=== PATIENT | female | born 1940 | race Caucasian/White ===

== ENCOUNTER 2018-02-13 12:33 | Inpatient (IN) | payer MEDICARE, SELFPAY ==
[~2018-02-13] VITALS: Ht 165.1 cm; Wt 42.5 kg
[~2018-02-13 12:33] MED LIST: ARIPIPRAZOLE2 MG PO; ASPI81CH PO; ASPI81EC; ATOR40TA PO; BUPR100ER; BUPR150ER; CLON.5; CLON.5 PO; CLOP75; CONEST.625; ESTMET; HYDPAM25; LUTEIN; LUTEIN 20 MG; MULTIVIT; MULVITA; NITR.4SL; NITR.4SL SL; PARO20 PO; PROM25 PO; RAMI5; ROSU10TA; TEMA30; TEMA30 PO; TRAM50; TRAM50 PO; Ultram50 MG PO; VENL150ER; VENL75ER; WELLBUTRIN; Xalatan2.5 ML BOTHEYES; [UNRECOGNIZED DRUG - CODE]
[2018-02-13 13:41] LABS: BASOPHILS ABSOLUTE AUTO 0.11 K/mm3 (0.00-0.23); BASOPHILS PERCENT AUTO 1 % (0-2); EOSINOPHILS ABSOLUTE AUTO 0.01 K/mm3 (0.00-0.68); EOSINOPHILS PERCENT AUTO 0 % (0-6); Hematocrit 33.6 % (33.0-51.0); Hemoglobin 10.7 g/dL (11.5-16.0); IMMATURE GRAN ABSOLUTE AUTO 0.07 K/mm3 (0.00-0.10); IMMATURE GRAN PERCENT AUTO 0 % (0-1); LYMPHOCYTES ABSOLUTE AUTO 1.46 K/mm3 (0.84-5.20); LYMPHOCYTES PERCENT AUTO 7 % (21-46); MONOCYTES ABSOLUTE AUTO 1.78 K/mm3 (0.16-1.47); MONOCYTES PERCENT AUTO 9 % (4-13); Mean Corpuscular HGB 29.3 pg (26.0-34.0); Mean Corpuscular HGB Conc 31.8 g/dL (31.5-36.5); Mean Corpuscular Volume 92 fL (80-100); Mean Platelet Volume 11.7 fL (9.1-12.4); NEUTROPHILS ABSOLUTE AUTO 16.75 K/mm3 (1.96-9.15); NEUTROPHILS PERCENT AUTO 83 % (41-73); Platelet Count 335 K/mm3 (150-400); RDW Coefficient Variation 14.5 % (11.7-14.2); RDW Standard Deviation 48.8 fL (35.1-46.3); Red Blood Cell Count 3.65 M/mm3 (3.80-5.20); White Blood Cell Count 20.18 K/mm3 (4.00-11.30)
[2018-02-13 13:44] LABS: Albumin, Blood 2.9 g/dL (3.4-5.0); Albumin/Globulin Ratio 0.7 (0.8-1.8); Bilirubin, Total 0.5 mg/dL (0.1-1.0); Bun/Creatinine Ratio 15.9 (12.0-20.0); Creatinine, Blood 1.38 mg/dL (0.40-1.00); Globulin, Blood 4.2 g/dL (2.2-4.0); Potassium, Blood 3.8 mmol/L (3.5-5.5); Total Protein, Blood 7.1 g/dL (6.4-8.2)
[2018-02-13] MEDS ORDERED: PARO20 PO (13:49)
[2018-02-13] MEDS ORDERED: ASPI81CH PO (13:49)
[2018-02-13] MEDS ORDERED: ATOR40TA PO (13:49)
[2018-02-13] MEDS ORDERED: CLON.5 PO (13:50)
[2018-02-13] MEDS ORDERED: OLAN5 PO (13:50)
[2018-02-13] MEDS ORDERED: LATANOPROST 0.7.5 ML BOTHEYES (13:50)
[2018-02-13] MEDS ORDERED: TEMA30 PO (13:50)
[2018-02-13] MEDS ORDERED: TRAM50 PO (13:51)
[2018-02-13] MEDS ORDERED: NITR.4SL SL (13:51)
[2018-02-13] MEDS ORDERED: Hair, Skin & N1 EACH PO (13:51)
[2018-02-13] MEDS ORDERED: PROM25 PO (13:52)
[2018-02-13 14:39] LABS: Influenza A Negative (NEGATIVE); Influenza B Negative (NEGATIVE)
[2018-02-13 15:02] LABS: Source, Urine Clean Catch
[2018-02-13 15:09] LABS: Bilirubin, Urine Neg (Neg); Blood, Urine 4+ (Neg); Glucose Qualitative, Urine Neg (Neg); Ketones, Urine 1+ (Neg); Leukocyte Esterase, Urine 1+ (Neg); Nitrite, Urine Pos (Neg); Protein, Urine 2+ (Neg); Urobilinogen, Urine NORM (Normal)
[2018-02-13 15:21] LABS: Appearance, Urine Clear (Clear); Color, Urine Yellow (P-Yellow)
[2018-02-13 15:23] LABS: White Blood Cells, Urine 25-50 /hpf (0-5)
[2018-02-13 15:27] LABS: Bacteria Many /hpf; Squamous Epithelial Cells Rare /hpf (Few)
--- NOTE | 2018-02-13 18:28 | NUR ---
NEW ER ADMIT PT IS A/O X4, STATE INCREASED WEAKNESS/FATIGUE, PROD COUGH REASON FOR HOSP. WBC 20.18, LACTIC ACID 2.1, SHE GOT 1L NS & IV LEVAQUIN IN ER. U/A SENT. LAB TECHS HAVE BEEN UNABLE TO DRAW BLOOD CX'S, DR WELCH NOTIFIED STATE WAIT UNTIL HYDRATED, NS @ 75 ML/HR & ATTEMPT WITH AM LABS, LAB NOTIFIED. PT IS SBA WITH CANE TO BR, STATE OLD CVA CAUSES SOME BALANCE PROBLEMS @ X'S. BIOX >90% ON RA. PLEASANT AFFECT. VSS.
--- NOTE | 2018-02-14 00:31 | NUR ---
PER RESPIRATORY THERAPIST YARY, PT HAD AN EPISODE OF CHOKING AND ASPIRATION WHEN DRINKING WATER. THE PT TOLD RT THAT SHE HAS BEEN HAVING TROUBLE SWALLOWING RECENTLY. WILL HOLD PT'S MEDS AND MAKE NPO UNTIL SHE CAN BE EVALUATED BY SPEECH THERAPY FOR A SWALLOW EVAL.
[2018-02-14 05:23] LABS: BASOPHILS ABSOLUTE AUTO 0.06 K/mm3 (0.00-0.23); BASOPHILS PERCENT AUTO 1 % (0-2); EOSINOPHILS ABSOLUTE AUTO 0.01 K/mm3 (0.00-0.68); EOSINOPHILS PERCENT AUTO 0 % (0-6); Hematocrit 31.2 % (33.0-51.0); Hemoglobin 9.9 g/dL (11.5-16.0); IMMATURE GRAN ABSOLUTE AUTO 0.06 K/mm3 (0.00-0.10); IMMATURE GRAN PERCENT AUTO 1 % (0-1); LYMPHOCYTES ABSOLUTE AUTO 0.72 K/mm3 (0.84-5.20); LYMPHOCYTES PERCENT AUTO 6 % (21-46); MONOCYTES ABSOLUTE AUTO 0.84 K/mm3 (0.16-1.47); MONOCYTES PERCENT AUTO 6 % (4-13); Mean Corpuscular HGB 29.1 pg (26.0-34.0); Mean Corpuscular HGB Conc 31.7 g/dL (31.5-36.5); Mean Corpuscular Volume 92 fL (80-100); NEUTROPHILS PERCENT AUTO 87 % (41-73); Platelet Count 310 K/mm3 (150-400); RDW Coefficient Variation 14.4 % (11.7-14.2); White Blood Cell Count 13.19 K/mm3 (4.00-11.30)
--- NOTE | 2018-02-14 05:46 | NUR ---
SHIFT SUMMARY PT IS 77-YEAR-OLD FEMALE, A&O X 3. SHE WAS ADMITTED FOR PNA. PT HAD A CONGESTED SOUNDING COUGH, BUT DID NOT COUGH UP ANY SPUTUM FOR A SAMPLE. PER RESPIRATORY THERAPY, PT ALSO HAD AN EPISODE OF COUGHING AND IS NPO PER A SWALLOW EVAL (SEE PREVIOUS NOTE). SHE DENIED ANY COMPLAINTS OF PAIN OR NAUSEA. SHE WAS ABLE TO GET UP WITH 1PA TO THE BATHROOM. NS CONTINUED AT 75 ML/HOUR THROUGH THE NIGHT. PT'S HEART RATE WAS ELEVATED DURING THE BEGINNING OF THE NIGHT IN THE 110S, BUT CAME DOWN TO THE 80S IN THE AM. ALL OTHER VITALS STABLE. NO OTHER ACUTE CHANGES IN PT CONDITION NOTED. WILL CONTINUE TO MONITOR AND TREAT PER EMAR UNTIL HAND OFF TO DAY SHIFT.
[2018-02-14 06:03] LABS: Albumin, Blood 2.4 g/dL (3.4-5.0); Albumin/Globulin Ratio 0.6 (0.8-1.8); Bilirubin, Total 0.5 mg/dL (0.1-1.0); Bun/Creatinine Ratio 14.7 (12.0-20.0); Calcium, Blood 8.4 mg/dL (8.5-10.1); Creatinine, Blood 1.16 mg/dL (0.40-1.00); Globulin, Blood 3.7 g/dL (2.2-4.0); Magnesium, Blood 1.8 mg/dL (1.6-2.4); Total Protein, Blood 6.1 g/dL (6.4-8.2)
--- NOTE | 2018-02-14 18:48 | NUR ---
SHIFT SUMMARY PT ADMITTED FOR PNEUMONIA. SPEECH THERAPY DID A SWALLOW EVAL TODAY AND PLACED HER ON DYSPHAGIA PRECAUTIONS. PT HAS A HISTORY OF CVA. A SPUTUM SAMPLE IS STILL NEEDED. PT IS GENERALLY WEAK BUT CAN AMBULATE WITH ONE ASSIST TO BATHROOM. PT HAS LITTLE APPETITE OR THIRST. IV FLUIDS ARE INFUSING. DIETARY CAME TO HELP THE PT ATTEMPT TO CHOOSE MORE APPEALING CHOICES. PT HAS A WET COUGH BUT STATES SHE CANNOT PRODUCE SPUTUM. PT DID VOMIT TODAY FOLLOWING A COUGHING SPELL, BUT THE NAUSEA ABATED FOLLOWING ZOFRAN ADMINISTRATION.
--- NOTE | 2018-02-15 04:32 | NUR ---
SHIFT SUMMARY PT ADMITTED FOR PNM; REPORTED HAVING FEVER, COUGH, AND CONGESTION. PT VERY WEAK AND MOVES SLOWLY. 1P ASSIST TO BTHRM. HAD BEEN UP FREQUENTLY WITH URGENCY AND SOME INCONTINENCE R/T UTI. PT NOT VOIDING AT ALL SOMETIMES, THOUGH THINKING SHE HAD. CALL LT IN REACH, BUT NOT WAITING FOR ASSIST AND NOT WANTING TO USE FWW. LUNGS T/O COARSE WITH COARSE PC. MED TAKEN WHOLE IN APPLESAUCE PER SPEECH THERAPY; PT NOT HAPPY AT FIRST AND WANTED THIN LIQUIDS "LIKE WATER". PT DID AGREE TO USE APPLESAUCE; DOING SO W/O DIFFICULTY. NO C/O PAIN. IVF'S INFUSING PER EMAR. BED ALARM PLACED FOR SAFETY.
[2018-02-15 05:04] LABS: BASOPHILS ABSOLUTE AUTO 0.06 K/mm3 (0.00-0.23); BASOPHILS PERCENT AUTO 0 % (0-2); EOSINOPHILS ABSOLUTE AUTO 0.06 K/mm3 (0.00-0.68); EOSINOPHILS PERCENT AUTO 0 % (0-6); Hematocrit 31.6 % (33.0-51.0); Hemoglobin 10.1 g/dL (11.5-16.0); IMMATURE GRAN ABSOLUTE AUTO 0.12 K/mm3 (0.00-0.10); IMMATURE GRAN PERCENT AUTO 1 % (0-1); LYMPHOCYTES ABSOLUTE AUTO 1.34 K/mm3 (0.84-5.20); LYMPHOCYTES PERCENT AUTO 8 % (21-46); MONOCYTES ABSOLUTE AUTO 1.59 K/mm3 (0.16-1.47); MONOCYTES PERCENT AUTO 9 % (4-13); Mean Corpuscular HGB 29.6 pg (26.0-34.0); Mean Corpuscular Volume 93 fL (80-100); Mean Platelet Volume 11.7 fL (9.1-12.4); NEUTROPHILS PERCENT AUTO 82 % (41-73); Platelet Count 295 K/mm3 (150-400); RDW Coefficient Variation 14.4 % (11.7-14.2); RDW Standard Deviation 48.9 fL (35.1-46.3); Red Blood Cell Count 3.41 M/mm3 (3.80-5.20); White Blood Cell Count 17.37 K/mm3 (4.00-11.30)
[2018-02-15 05:33] LABS: Bun/Creatinine Ratio 15.2 (12.0-20.0); Calcium, Blood 8.4 mg/dL (8.5-10.1); Creatinine, Blood 1.05 mg/dL (0.40-1.00); Potassium, Blood 4.4 mmol/L (3.5-5.5)
--- NOTE | 2018-02-15 19:07 | NUR ---
SHIFT SUMMARY- PT DENIES PAIN. PT DENIES SOB. DYSPNEA UPON EXERTION. LUNGS COARSE T/O. DENIES N/V. SPEECH ORDERED PT TO BE NPO. SEE ST NOTE. RT PLACED PT ON 2L O2 NC. RESP SHALLOW AND EVEN. BED ALARM ON. PT HAS ATTEMPTED TO GET OUT OF BED WITHOUT CALLING FOR ASSISTANCE A FEW TIMES THIS SHIFT. NO OTHER SIGNIFICANT CHANGES THIS SHIFT.
--- NOTE | 2018-02-16 04:30 | NUR ---
SHIFT SUMMARY PT HAS SLEPT FAIR, PT DOESN'T UNDERSTAND WHY SHE CAN'T HAVE ANYTHING TO EAT OR DRINK. PT GIVEN EXPLANATION TO WHY, BUT FORGETS AND ASKS AGAIN. ORAL SWABS GIVEN TO PT TO SWAB OUT MOUTH AND GIVE SOME MOISTURE. NO ACUTE CHANGES NOTED WITH PT, WILL CONTINUE TO MONITOR.
[2018-02-16 04:53] LABS: BASOPHILS ABSOLUTE AUTO 0.08 K/mm3 (0.00-0.23); BASOPHILS PERCENT AUTO 0 % (0-2); EOSINOPHILS ABSOLUTE AUTO 0.03 K/mm3 (0.00-0.68); EOSINOPHILS PERCENT AUTO 0 % (0-6); Hematocrit 34.7 % (33.0-51.0); IMMATURE GRAN ABSOLUTE AUTO 0.36 K/mm3 (0.00-0.10); IMMATURE GRAN PERCENT AUTO 2 % (0-1); LYMPHOCYTES ABSOLUTE AUTO 1.18 K/mm3 (0.84-5.20); LYMPHOCYTES PERCENT AUTO 5 % (21-46); MONOCYTES ABSOLUTE AUTO 1.92 K/mm3 (0.16-1.47); MONOCYTES PERCENT AUTO 9 % (4-13); Mean Corpuscular HGB 29.5 pg (26.0-34.0); Mean Corpuscular HGB Conc 31.7 g/dL (31.5-36.5); Mean Corpuscular Volume 93 fL (80-100); Mean Platelet Volume 11.7 fL (9.1-12.4); NEUTROPHILS ABSOLUTE AUTO 18.94 K/mm3 (1.96-9.15); NEUTROPHILS PERCENT AUTO 84 % (41-73); Platelet Count 350 K/mm3 (150-400); RDW Coefficient Variation 14.5 % (11.7-14.2); Red Blood Cell Count 3.73 M/mm3 (3.80-5.20); White Blood Cell Count 22.51 K/mm3 (4.00-11.30)
[2018-02-16 05:09] LABS: Bun/Creatinine Ratio 11.9 (12.0-20.0); Calcium, Blood 9.1 mg/dL (8.5-10.1); Creatinine, Blood 1.01 mg/dL (0.40-1.00); Potassium, Blood 4.1 mmol/L (3.5-5.5)
--- NOTE | 2018-02-16 19:08 | NUR ---
SHIFT SUMMARY- PT DENIES PAIN. DENIES SOB AT REST. DYSPNEA UPON EXERTION. RESP SHALLOW AND EVEN ON 2L O2 NC. DENIES N/V. 1 ASSIST FWW TO THE BATHROOM. SPEECH REEVALUATED PT AND REPORTS PT IS IMPROVING. SPEECH ORDERED PUREE DIET WITH 100% SUPERVISION, NECTAR THICK LIQUID BY SPOON, NO STRAWS AND MEDS CRUSHED IN APPLESAUCE. WBC IS HIGHER TODAY AT 22.51. DR. JULES AWARE. NO OTHER SIGNIFICANT CHANGES THIS SHIFT.
--- NOTE | 2018-02-17 04:53 | NUR ---
SHIFT SUMMARY PT SLEPT FAIR, UP TO BATHROOM FREQUENTLY. IVF'S INFUSING PER PUMP WITHOUT DIFFICULTY. PT OFFERS NO C/O'S. NO ACUTE CHANGES NOTED. WILL CONTINUE TO MONITOR.
[2018-02-17 05:15] LABS: BASOPHILS ABSOLUTE AUTO 0.07 K/mm3 (0.00-0.23); BASOPHILS PERCENT AUTO 0 % (0-2); EOSINOPHILS ABSOLUTE AUTO 0.12 K/mm3 (0.00-0.68); EOSINOPHILS PERCENT AUTO 1 % (0-6); Hematocrit 32.6 % (33.0-51.0); Hemoglobin 10.5 g/dL (11.5-16.0); IMMATURE GRAN ABSOLUTE AUTO 0.38 K/mm3 (0.00-0.10); IMMATURE GRAN PERCENT AUTO 1 % (0-1); LYMPHOCYTES PERCENT AUTO 7 % (21-46); MONOCYTES PERCENT AUTO 10 % (4-13); Mean Corpuscular HGB 29.1 pg (26.0-34.0); Mean Corpuscular HGB Conc 32.2 g/dL (31.5-36.5); Mean Platelet Volume 11.9 fL (9.1-12.4); NEUTROPHILS ABSOLUTE AUTO 21.29 K/mm3 (1.96-9.15); NEUTROPHILS PERCENT AUTO 81 % (41-73); Platelet Count 369 K/mm3 (150-400); RDW Coefficient Variation 14.4 % (11.7-14.2); RDW Standard Deviation 48.3 fL (35.1-46.3); Red Blood Cell Count 3.61 M/mm3 (3.80-5.20); White Blood Cell Count 26.36 K/mm3 (4.00-11.30)
[2018-02-17 05:18] LABS: Mean Corpuscular Volume 90 fL (80-100)
[2018-02-17 05:44] LABS: Bun/Creatinine Ratio 10.4 (12.0-20.0); Calcium, Blood 8.7 mg/dL (8.5-10.1); Creatinine, Blood 0.97 mg/dL (0.40-1.00); Potassium, Blood 3.5 mmol/L (3.5-5.5)
--- NOTE | 2018-02-17 16:44 | NUR ---
SHIFT SUMMARY NO CHANGES IN ASSESSMENT AT THIS TIME. PT AMBULATING TO BATHROOM WITH SBA. VSS. AFIBRILE. PT UP FOR MEALS AND IN CHAIR WHEN TOLERABLE. PT STATES SHE "IS VERY SLEEPY TODAY" WILL CONTINUE TO MONITOR UNTIL TURNOVER IS COMPLETE.
[2018-02-18 05:11] LABS: BASOPHILS ABSOLUTE AUTO 0.08 K/mm3 (0.00-0.23); BASOPHILS PERCENT AUTO 0 % (0-2); EOSINOPHILS ABSOLUTE AUTO 0.47 K/mm3 (0.00-0.68); EOSINOPHILS PERCENT AUTO 2 % (0-6); Hemoglobin 9.7 g/dL (11.5-16.0); IMMATURE GRAN ABSOLUTE AUTO 0.39 K/mm3 (0.00-0.10); IMMATURE GRAN PERCENT AUTO 2 % (0-1); LYMPHOCYTES ABSOLUTE AUTO 1.32 K/mm3 (0.84-5.20); LYMPHOCYTES PERCENT AUTO 6 % (21-46); MONOCYTES ABSOLUTE AUTO 2.21 K/mm3 (0.16-1.47); MONOCYTES PERCENT AUTO 10 % (4-13); Mean Corpuscular HGB 29.1 pg (26.0-34.0); Mean Corpuscular HGB Conc 32.3 g/dL (31.5-36.5); Mean Corpuscular Volume 90 fL (80-100); Mean Platelet Volume 11.8 fL (9.1-12.4); NEUTROPHILS ABSOLUTE AUTO 17.23 K/mm3 (1.96-9.15); NEUTROPHILS PERCENT AUTO 79 % (41-73); Platelet Count 370 K/mm3 (150-400); RDW Coefficient Variation 14.3 % (11.7-14.2); RDW Standard Deviation 47.2 fL (35.1-46.3); Red Blood Cell Count 3.33 M/mm3 (3.80-5.20)
--- NOTE | 2018-02-18 05:22 | NUR ---
SHIFT SUMMARY NO CHANGES THIS SHIFT. PT HAS RESTED MOST OF THE NIGHT. SHE DENIES PAIN. 0.[address] LUNGS DIMINISHED. SHE REPORTS PRODUCTIVE COUGH WITH THICK WHITE SPUTUM BUT IS UNABLE TO PROVIDE SPUTUM SAMPLE. PT A/OX4, BUT IS FORGETFUL. DOES NOT REMEMBER TO CALL AND WILL CLIMB OUT OF BED TO USE THE BATHROOM. ALARM IN PLACE. ASSESSMENT OTHERWISE UNCHANGED. WILL CONTINUE TO MONITOR AND REPORT TO ONCOMING RN.
[2018-02-18 05:33] LABS: Bun/Creatinine Ratio 8.3 (12.0-20.0); Calcium, Blood 8.6 mg/dL (8.5-10.1); Creatinine, Blood 0.96 mg/dL (0.40-1.00); Potassium, Blood 3.3 mmol/L (3.5-5.5)
--- NOTE | 2018-02-18 15:30 | NUR ---
PATIENT'S BROTHER, DEREK ALMONTE, ASKED NURSE ABOUT PATIENT'S DISCHARGE. HE IS CONCERNED THAT THE PATIENT CANNOT ADEQUATELY CARE FOR HERSELF AT HOME. PT'S HOME IS SATURATED WITH CIGARETTE SMOKE, WHICH HE IS WORKING ON AIRING OUT BUT HE STATES IS STILL PERSISTING. HE IS ALSO WORKING ON INSTALLING A GRAB BAR NEXT TO THE TOILET AND SHOWER, AND TRYING TO FIND A NON-SLIP SURFACE FOR HER SHOWER. PT HAS A TALL TOILET CHAIR AND A FRONT WHEELED WALKER THAT SHE CAN USE TEMPORARILY UNTIL SHE CAN GET ONE OF HER OWN. HE IS CURIOUS IF INSURANCE WILL COVER A FWW. HE FEELS STRONGLY THAT PATIENT IS NOT READY TO BE DISCHARGED TO HOME, DESPITE HOME HEALTH BEING THE RECOMMENDATION AT THIS POINT. HE WOULD LIKE TO SPEAK WITH DISCHARGE PLANNING SOON POSSIBLE ON MONDAY DUE TO HIM NEEDING TO TRAVEL BACK HOME (300 MILES) TOMORROW. HIS PHONE NUMBER IS [phone].
--- NOTE | 2018-02-18 17:09 | NUR ---
SHIFT SUMMARY PT LAURIEO, PLEASANT AND COOPERATIVE WITH CARE. REUSED MEDS CRUSHED IN APPLESAUCE, TOOK THEM WHOLE IN APPLESAUCE WELL DESPITE EDUCATION REGARDING SWALLOWING. PT SBA TO BATHROOM. NO ACUTE CHANGES THIS SHIFT. SEE NOTE ABOUT HER BROTHER'S CONCERNS ABOUT HER DISCHARGE. IV PATENT AND SALINE LOCKED. DENIES SOB, NV AND PAIN. VSS THOUGH PULSE SLIGHTLY ELEVATED WHICH UPON REVIEW OF HER VITAL SIGNS HAPPENS PERIODICALLY. BED IN LOW POSITIN, CALL LIGHT WITHIN REACH. TAB ALARM ON.
[2018-02-19 04:56] LABS: BASOPHILS PERCENT AUTO 1 % (0-2); EOSINOPHILS PERCENT AUTO 4 % (0-6); Hematocrit 34.4 % (33.0-51.0); Hemoglobin 11.3 g/dL (11.5-16.0); IMMATURE GRAN ABSOLUTE AUTO 0.23 K/mm3 (0.00-0.10); IMMATURE GRAN PERCENT AUTO 1 % (0-1); LYMPHOCYTES ABSOLUTE AUTO 2.23 K/mm3 (0.84-5.20); LYMPHOCYTES PERCENT AUTO 11 % (21-46); MONOCYTES ABSOLUTE AUTO 1.81 K/mm3 (0.16-1.47); MONOCYTES PERCENT AUTO 9 % (4-13); Mean Corpuscular HGB Conc 32.8 g/dL (31.5-36.5); Mean Corpuscular Volume 88 fL (80-100); Mean Platelet Volume 11.6 fL (9.1-12.4); NEUTROPHILS ABSOLUTE AUTO 15.29 K/mm3 (1.96-9.15); NEUTROPHILS PERCENT AUTO 75 % (41-73); Platelet Count 463 K/mm3 (150-400); RDW Coefficient Variation 14.5 % (11.7-14.2); RDW Standard Deviation 46.7 fL (35.1-46.3); Red Blood Cell Count 3.89 M/mm3 (3.80-5.20); White Blood Cell Count 20.46 K/mm3 (4.00-11.30)
--- NOTE | 2018-02-19 05:00 | NUR ---
SHIFT SUMMARY NO CHANGES THIS SHIFT. PT SEEMS TO BE IMPROVING. SHE HAS BEEN TITRATED DOWN FROM .5 LITERS TO RA. SHE DENIES SOB, AND IS ABLE TO AMBULATE TO THE BATHROOM WITH MINIMAL ASSISTANCE. PT ALSO REPORTS THAT HER APPEITIE IS RETURNING. SHE DENIES PAIN OR NEEDS T/O THE NIGHT. IV ABX INFUSED ORDERED. RESTFUL NIGHT. WILL CONTINUE TO MONITOR AND REPORT TO ONCOMING RN.
[2018-02-19 05:31] LABS: Bun/Creatinine Ratio 8.7 (12.0-20.0); Calcium, Blood 8.8 mg/dL (8.5-10.1); Creatinine, Blood 1.03 mg/dL (0.40-1.00); Potassium, Blood 3.5 mmol/L (3.5-5.5)
[2018-02-19] MEDS ORDERED: ALBU90OI INH (13:50)
[2018-02-19] MEDS ORDERED: LEVO750 PO (13:52)
[2018-02-19] MEDS ORDERED: BUDE.25 NEB (13:53)
[2018-02-19] MEDS ORDERED: Mucinex600 MG (13:54)
[2018-02-19] MEDS ORDERED: Xalatan2.5 ML BOTHEYES (13:56)
--- NOTE | 2018-02-19 15:06 | NUR ---
PATIENT TO BE DISCHARGED HOME WITH HOME HEALTH. IVS REMOVED. NO SS OF INFECTION NOTED. NURSE WENT OVER NEW MEDS WITH PATIENT. MED LIST WAS FAXED TO PHARMACY OF CHOICE . NURSE DISCUSSED WAS TO PREVENT ASPIRATION AND SUPPLIED PATIENT WITH DOCUMENTS ON DYSPHAGIA AND MECH SOFT FOOD. PATIENT IS DRESSED AND WAITING FOR BROTHER TO COME UP AND TAKE HER HOME.
== END 2018-02-19 15:21 | disposition home health service (06) | DRG 871 ==
LOC: ER 12:33 → MEDS 16:22 → ER 16:55 → MEDS 17:10 → ENPENDDIS 02-19 11:00 → MEDS 02-19 15:21
PROVIDERS: Emergency Medicine; Internal Medicine; ADMIT Internal Medicine
DX: A41.51 Sepsis due to Escherichia coli [E. coli] (principal); J69.0 Pneumonitis due to inhalation of food and vomit; J96.01 Acute respiratory failure with hypoxia; N39.0 Urinary tract infection, site not specified; J44.1 Chronic obstructive pulmonary disease with (acute) exacerbation; R65.20 Severe sepsis without septic shock; I25.10 Atherosclerotic heart disease of native coronary artery without angina pectoris; N18.3 Chronic kidney disease, stage 3 (moderate); E78.5 Hyperlipidemia, unspecified; F17.200 Nicotine dependence, unspecified, uncomplicated; Z66 Do not resuscitate; Z74.09 Other reduced mobility; Z88.5 Allergy status to narcotic agent; Z88.0 Allergy status to penicillin; Z88.8 Allergy status to other drugs, medicaments and biological substances; Z95.5 Presence of coronary angioplasty implant and graft; Z79.82 Long term (current) use of aspirin; Z79.899 Other long term (current) drug therapy
CPT/HCPCS: 36415; 71046; 71260; 80048; 80053; 81001; 83605; 83690; 83735; 84145; 85025; 87040; 87077; 87086; 87186; 87804; 92526; 92610; 93005; 93010; 94640; 94667; 94760; 96361; 96365; 97116; 97161; 97165; 97530; 97535; 98960; 99285-25; 99406; J0713; J1644; J1956; J2405; J7030; J7042; J7050; J7060; P9612; Q9967